=== PATIENT | female | born 1960 | race Caucasian/White ===

== ENCOUNTER 2018-04-11 09:01 | Emergency (ER) | payer BC ==
[~2018-04-11] VITALS: Ht 165.1 cm; Wt 99.3 kg
[2018-04-11 13:07] VITALS: BP 179/78
== END 2018-04-11 13:07 | disposition home or self-care (01) ==
LOC: EME 09:01
DX: S61.411A Laceration without foreign body of right hand, initial encounter (principal); S61.212A Laceration without foreign body of right middle finger without damage to nail, initial encounter; W26.8XXA Contact with other sharp object(s), not elsewhere classified, initial encounter; Z23 Encounter for immunization; E78.5 Hyperlipidemia, unspecified; I10 Essential (primary) hypertension; J45.909 Unspecified asthma, uncomplicated
CPT/HCPCS: 73130; 99281; 99284